=== PATIENT | male | born 1955 | race Caucasian/White ===

== ENCOUNTER 2022-04-11 10:09 | Outpatient (CLI) | payer MEDICARE, SELFPAY ==
--- NOTE | ~2022-04-11 | XR_ITS ---
XR lumbar spine 6V w bending DATE: 04/11/2022 10:35 INDICATION: Low back pain, right sciatica. No injury. TECHNIQUE: AP, lateral, bilateral oblique views, coned lateral lumbosacral view. Flexion and extensio n lateral views. COMPARISON: None FINDINGS: There is osteopenia. Normal alignment lumbar vertebra without instability on flexion or extension. There is moderately severe degenerative disc disease at L1-2, L2-3 and L5-S1. There is minimal degene rative disc disease at L3-4 and L4-5. The lumbar pedicles are intact. No fracture or bone destruction, spondylolysis or spondylolisthesis. The sacroiliac joints are intact. IMPRESSION: Multilevel degenerative disc disease Reviewed, dictated and finalized at location A.
== END 2022-04-11 10:10 | disposition home or self-care (01) ==
PROVIDERS: PCP Internal Medicine; Visit Provider Physician Assistant
DX: M54.30 Sciatica, unspecified side (principal); M51.36 Other intervertebral disc degeneration, lumbar region
CPT/HCPCS: 72114